=== PATIENT | male | born 2000 | race Caucasian/White ===

== ENCOUNTER 2021-07-16 11:55 | Emergency (ER) | payer OTHER ==
[~2021-07-16] VITALS: Ht 185.4 cm; Wt 112.9 kg
== END 2021-07-16 13:41 | disposition home or self-care (01) ==
LOC: ED 11:55
DX: S50.12XA Contusion of left forearm, initial encounter (principal); W21.00XA Struck by hit or thrown ball, unspecified type, initial encounter
CPT/HCPCS: 29105; 73080; 99283-25